=== PATIENT | female | born 1940 | race Caucasian/White ===

== ENCOUNTER 2021-07-30 13:16 | Outpatient (CLI) | payer MEDICARE | END 2021-07-30 13:17 | disposition home or self-care (01) | LOC: CSHCT 13:16 | PROVIDERS: ATTEND Urology | DX: N39.41 Urge incontinence (principal); N28.9 Disorder of kidney and ureter, unspecified; R31.29 Other microscopic hematuria; I72.8 Aneurysm of other specified arteries; K44.9 Diaphragmatic hernia without obstruction or gangrene; K57.30 Diverticulosis of large intestine without perforation or abscess without bleeding | CPT/HCPCS: 74176 ==